=== PATIENT | female | born 1950 | race Caucasian/White ===

== ENCOUNTER 2017-09-06 13:18 | Emergency (ER) | payer MEDICARE ==
[~2017-09-06] VITALS: Ht 152.4 cm; Wt 60.0 kg
[2017-09-06 13:23] VITALS: BP 169/71; PULSE 59; RESP 16; TEMP 97.7; O2SAT 97
[2017-09-06] MEDS ORDERED: ATEN50TA PO (13:40)
[2017-09-06] MEDS ORDERED: PROP1TAB (13:40)
[2017-09-06] MEDS ORDERED: ACETAMINOPHEN 325 MG TAB PO ONE (14:15)
--- NOTE | 2017-09-06 14:43 | RADRPT ---
EXAM DATE/TIME: 09/06/2017 14:26 [place] COMPARISON: No previous studies available for comparison. INDICATIONS : Tripped today. Pain in left fifth toe. MEDICAL HISTORY : None. SURGICAL HISTORY : None. ENCOUNTER: Initial ACUITY: 1 day PAIN SCORE: 10/10 LOCATION: Left fifth toe. FINDINGS: Fracture distal N. proximal phalanx fifth toe with minimal angulation. No other fractures appreciate d. CONCLUSION: Fracture proximal phalanx of fifth toe. Adriel Arevalo MD FACR on September 06, 2017 at 14:40 Board Certified Radiologist. This report was verified electronically.
--- NOTE | 2017-09-06 15:07 | PD ---
HPI Chief Complaint: Injury Time Seen by Provider: 14:01 Travel History International Travel<30 days: No Contact w/Intl Traveler<30days: No Traveled to known affect area: No History of Present Illness HPI 67-year-old female with left fifth toe pain after she stubbed the foot on a piece of furniture. It recurred prior to arrival. She has pain within the toe. Weightbearing is painful. Denies paresthesia or weakness of the digit. No other injury. Symptom severity is moderate. PFSH Past Medical History Cardiovascular Problems: Yes (htn on meds) Hypertension: Yes Past Surgical History Surgical History: No Previous Surgery Social History Alcohol Use: Yes (occ) Tobacco Use: No Substance Use: No Allergies-Medications (Allergen,Severity, Reaction): Coded Allergies: No Known Allergies (Unverified , 09/06/17) Reported Meds & Prescriptions Reported Meds & Active Scripts Active Reported Propecia (Finasteride (Alopecia)) 1 Mg Tab Atenolol 50 Mg Tab 50 Mg PO BID Review of Systems Except as stated in HPI: all other systems reviewed are Neg Physical Exam Narrative GENERAL: Alert female. Well-appearing. SKIN: Warm and dry. No abrasions or ecchymosis. HEAD: Normocephalic. Atraumatic EYES: No injection or drainage. NECK: Supple, trachea midline. MUSCULOSKELETAL: No cyanosis. Left foot: Fifth toe deformity with mild lateral displacement. Tenderness over the fifth toe. Normal sensation. Normal color. Data Data Last Documented VS Vital Signs Date Time Temp Pulse Resp B/P (MAP) Pulse Ox O2 Delivery O2 Flow Rate FiO2 09/06/17 13:23 97.7 59 16 169/71 (103) 97 Orders Orders Toe (Min 2vws) (09/06/17 ) Acetaminophen (Tylenol) (09/06/17 14:15) Radiology Film Requests (09/06/17 ) Splint Or Brace Apply/Monitor (09/06/17 15:03) Shoe Cast (09/06/17 ) MDM Medical Decision Making Medical Screen Exam Complete: Yes Emergency Medical Condition: Yes Differential Diagnosis Toe fracture, dislocation, sprain Narrative Course 67 -year-old female here with left fifth toe fracture. The 5TH phalanx fracture and lateral displacement. The toe was digitally blocked and manually reduced. Postreduction the toe is neurovascularly intact. Normal alignment was achieved. The toes are apollo taped. Post reduction x-ray was recommended. Patient declined. She is here on vacation and will follow up with a magnetic prospecting supervisor in her hometown. She was given a CD of the films taken today. She was offered pain medication for which she declined. Return precautions were discussed. Patient verbalizes understanding and agrees to plan Diagnosis Primary Impression: Fracture of fifth toe, left, closed Qualified Codes: S92.502A - Displaced unspecified fracture of left lesser toe( s), initial encounter for closed fracture Referrals: [facility] Technician Additional Instructions: Where the postop shoe. Ice and elevate the extremity. Take [id number] Tylenol or Aleve as needed for pain. Follow-up with a magnetic prospecting supervisor. Apollo tape the toes as be discussed. Disposition: 01 DISCHARGE HOME Condition: Stable Janeth Shannon Sep 06, 2017 15:07
== END 2017-09-06 15:21 | disposition home or self-care (01) ==
LOC: PHEFT 13:18
DX: S92.512A Displaced fracture of proximal phalanx of left lesser toe(s), initial encounter for closed fracture (principal); I10 Essential (primary) hypertension; W22.8XXA Striking against or struck by other objects, initial encounter
CPT/HCPCS: 28515; 73660; 99284; L3260